=== PATIENT | male | born 1995 ===

== ENCOUNTER 2023-10-26 23:18 | Emergency (ER) | payer SELFPAY ==
[2023-10-26] MEDS ORDERED: Dexamethasone 4 MG/ML SDV IM ONE (23:45)
[2023-10-26] MEDS ORDERED: Orphenadrine 60 MG/2 ML Inj IM ONE (23:45)
[2023-10-27] MEDS ORDERED: Acetaminophen 500 MG Tab PO ONE (00:27)
== END 2023-10-27 00:36 | disposition home or self-care (01) ==
LOC: DL.ED 23:18
DX: M54.41 Lumbago with sciatica, right side (principal)
CPT/HCPCS: 72100; 96372; 99283; A9270; J1100; J2360

== ENCOUNTER 2025-04-10 18:31 | Emergency (ER) | payer SELFPAY ==
[2025-04-10] MEDS: Ketorolac 30 MG/ML SDV IM ONE (19:44)
== END 2025-04-10 19:55 | disposition home or self-care (01) ==
LOC: DL.ED 18:31
DX: S33.5XXA Sprain of ligaments of lumbar spine, initial encounter (principal); V49.49XA Driver injured in collision with other motor vehicles in traffic accident, initial encounter
CPT/HCPCS: 96372; 99283; 99284; J1885